=== PATIENT | female | born 1960 | race Caucasian/White ===

== ENCOUNTER → 2021-04-08 | Outpatient (CLI) | payer OTHER | LOC: KOH-I 08:27 | DX: M25.511 Pain in right shoulder (principal) | CPT/HCPCS: 73030 ==

== ENCOUNTER → 2021-04-15 | Outpatient (CLI) | payer OTHER | LOC: KOH-I 08:00 | DX: M25.511 Pain in right shoulder (principal); S46.011A Strain of muscle(s) and tendon(s) of the rotator cuff of right shoulder, initial encounter | CPT/HCPCS: 73221 ==

== ENCOUNTER → 2021-04-20 | Outpatient (CLI) | payer OTHER | LOC: KOH-I 09:17 | DX: Z78.0 Asymptomatic menopausal state (principal) | CPT/HCPCS: 77080 ==

== ENCOUNTER → 2022-02-23 | Outpatient (CLI) | payer OTHER | LOC: KOH-I 09:12 | DX: M79.672 Pain in left foot (principal); M79.671 Pain in right foot; M19.071 Primary osteoarthritis, right ankle and foot | CPT/HCPCS: 73630 ==